=== PATIENT | female | born 1980 | race Caucasian/White ===

== ENCOUNTER 2025-07-17 19:49 | Emergency (ER) | payer OTHER, SELFPAY ==
[2025-07-17 19:51] VITALS: BP 154/90
[2025-07-17 20:04] LABS: Hematocrit 33.8 % (37.0-47.0); Hemoglobin 11.0 g/dL (12.0-16.0); Mean Corp Hgb Conc. 32.5 g/dL (33.0-37.0); Mean Corpuscular Volume 81.6 fL (81.0-99.0); Nucleated Red Blood Cells % 0 %; Platelet Count 366 10^3/uL (130-400); Red Cell Dist. Width 14.7 % (11.5-14.5)
[2025-07-17 20:27] LABS: ALT (SGPT) 19 U/L (0-35); AST (SGOT) 19 U/L (14-36); Albumin 4.1 g/dl (3.5-5.0); Alkaline Phosphatase 89 U/L (38-126); Blood Urea Nitrogen 10 mg/dl (7-17); Calcium 9.0 mg/dl (8.4-10.2); Carbon Dioxide 23 mmol/L (22-30); Chloride 105 mmol/L (98-107); Glucose 98 mg/dl (70-99); Potassium 4.1 mmol/L (3.5-5.1); Sodium 136 mmol/L (135-145); Total Protein 7.1 g/dl (6.3-8.2); eGFR > 60.00
[2025-07-17 20:57] VITALS: BMI 27.1
[2025-07-17 20:59] LABS: Beta HCG Quantitative 605.73 mIU/ml
--- NOTE | 2025-07-17 20:59 | ED.GENMED ---
History of Present Illness
General
Chief Complaint: Fever
Source: patient
Exam Limitations: none
Time Seen by Provider: 07/17/25 20:30
Nursing documentation reviewed up to this point in time: agreed with
History of Present Illness
History of Present Illness:
45-year-old female recently started Wegovy presenting to the emergency department today with concerns of leg achiness body aches and fever over the past 4 days. Also has noticed some lower abdominal and pelvic cramping over the past few days. Her
menstrual cycle somewhat late over the past week and did have a home positive test patient is , 2 C-sections.
Past History
Past History
ED Past Medical History: Negative Asthma, HTN, Hypercholesterolemia or NIDDM
ED Past Surgical History: Cholecystectomy
Social History
Tobacco: Non-smoker
Alcohol: Occasional
Personal:
Living: with family
Review of Systems
Review of Systems
Allergies reviewed?: Yes
All Other Systems: ROS reviewed and negative except as documented in HPI and ROS
Phy Exam
Physical Exam
Physical Exam:
GENERAL: Alert , in no apparent distress
EYE: pupils equal and reactive
NECK: Supple, no significant adenopathy.
ENT: o/p clr, mmm.
CARDIAC: Regular rate and rhythm .
LUNGS: Clear breath sounds bilaterally, no acute respiratory distress, no wheezes/rales/rhonchi
ABDOMEN: Slight distention to the lower abdomen with vague discomfort no point tenderness
NEUROLOGICAL: Alert and oriented, no focal neuro deficits
SKIN: Warm and dry, skin intact.
MUSCULOSKELETAL: No edema, well perfused.
PSYCH: Normal and appropriate interaction.
Course
Orders/Labs/Results
Orders:
Orders
07/17/25 19:58
Complete Blood Count/With Diff Urgent
Comprehensive Metabolic Panel Urgent
HCG, Beta Quantitative [Beta HCG Quantitative] Urgent
Is this a screen?: No
07/17/25 20:57
US 1st Trimester Urgent
Comment:
Reason For Exam: cramping 5 weeks by dates
07/17/25 21:08
COVID-19 Antigen Urgent
Source: Nasal Swab
07/17/25 23:08
Urinalysis Reflex To Culture Urgent
Date Specimen was Collected: 07/17/25
Time Specimen was Collected: 22:58
Abnormal Lab Results
07/17/25
19:58
RBC 4.14 L 10^6/uL
(4.20-5.40)
Hgb 11.0 L g/dL
(12.0-16.0)
Hct 33.8 L %
(37.0-47.0)
MCH 26.6 L pg
(27.0-31.0)
MCHC 32.5 L g/dL
(33.0-37.0)
RDW 14.7 H %
(11.5-14.5)
Abs Immat Gran (auto) 0.1 H 10^3/uL
(0-0.05)
Absolute Neuts (auto) 7.0 H 10^3/uL
(1.4-6.5)
Absolute Monos (auto) 0.7 H 10^3/uL
(0.1-0.6)
Lymphocytes % 17.2 L %
(20.5-51.1)
07/17/25 19:58
07/17/25 19:58
Vital Signs
Initial and Last Documented VS:
Initial Vital Signs
Temp Pulse Resp BP Pulse Ox
99.0 F 110 18 154/90 99
07/17/25 19:51 07/17/25 19:51 07/17/25 19:51 07/17/25 19:51 07/17/25 19:51
Last Documented Vital Signs
Temp Pulse Resp BP Pulse Ox
99.4 F 91 14 117/70 100
07/17/25 23:10 07/17/25 23:10 07/17/25 23:10 07/17/25 23:10 07/17/25 23:10
MDM/Problems Addressed
MDM/Problems Addressed:
45-year-old female presenting to the emergency department today with concerns of fever over the past few days vague lower abdominal pain and achiness going to her legs bilaterally. No neurologic symptoms to her legs. No overlying skin changes no
upper respiratory symptoms. Positive test at home. Plan for ultrasound for further assessment. Ultrasound without visualization of obvious . Case discussed with OB the recommends repeated hCG in 48 hours. She was given their
information for follow-up otherwise stable for outpatient management.
*Pulse Oximetry
SaO2: 99
Oxygen Mode of Delivery: Room air
Patient hypoxic: no (100)
*Critical Care Note
Total Time (30-74mins, 75-104mins- exclusive of procedures): Not Applicable
ED Attending Note
-
Portions of this chart may have been created with voice recognition software.� Occasional wrong word or��sound alike� substitutions may have occurred due to the inherent limitations of voice recognition software.
Discharge Plan
Departure
Patient Disposition: Home (Routine Discharge)
Date of Disposition: 07/18/25
Time of Disposition: 00:34
Patient with high blood pressure during this ER visit?: No
Condition: Good
Covid-19: Not Applicable
Discharge Problem:
of unknown anatomic location
Instructions: Ectopic - ED (DC)
Prescriptions:
No Action
bupropion HCl 300 mg Tablet Extended Release 24 Hr
300 mg PO DAILY
Wegovy 0.25 mg/0.5 mL Pen Injector
0.25 mg SC QWEEK
Referrals:
Jon Gomez MD [Family Provider, Family Practice]
Shannan Chester DO [Active, Gynecology] - Follow up in 2-3 days
Stand Alone Forms: Return to Work
Activity Restrictions/Additional Instructions:
You came to the emergency department today with concerns of multiple symptoms. Here you are found to have a of unknown location. Please follow-up closely with obstetrics. Please call tomorrow at the listed number to set up your repeated
hCG level and follow-up. Return for any worsening, new or concerning symptoms.
Interventions
Interventions:
*Risk Screen - Suicide Last Done: 07/17/25 19:54
*General Assessment Last Done: 07/17/25 19:54
*Neglect/Abuse Screening Last Done: 07/17/25 19:54
*ED COVID-19 Vaccine History Last Done: 07/17/25 19:54
*Nursing Disposition Last Done: 07/18/25 00:47
ED- Neurological Assessment Last Done: 07/17/25 20:57
ED-Skin Assessment Last Done: 07/17/25 20:57
Discharge Date and Time
Discharge Date/Time: 07/18/25 00:47
Print Language: TRINIDADIAN
--- NOTE | 2025-07-17 20:59 | EDRN ---
Pt developed aching legs on Friday. Friday she went to work and her legs were aching again so she took motrin. Pt has not been to work since because she started with a fever of 101 Friday night. Pt notes temp of 101-101.5 daily.
and Friday, pain in her legs was 'excruciating, I laid around like a limp fish.' Pt had negative flu and covid tests on Friday. Today, pt took a test because her period is late and the test was positive. Pt has two children. LMP June
4th. Pt denies cp, sob, cough, urinary symptoms, sore throat, runny/congested nose. Pt took a walk in the park today 'to try and feel normal.' Pt recently stopped taking contrave because it stopped working and started wegovy.
[2025-07-17 21:11] VITALS: BP 141/87
[2025-07-17 21:29] LABS: COVID-19 Antigen Negative (Negative)
[2025-07-17 23:10] VITALS: BP 117/70
[2025-07-17 23:23] LABS: Urine Character Clear (Clear)
== END 2025-07-18 00:47 | disposition home or self-care (01) ==
LOC: EMR 19:49
PROVIDERS: Physician Assistant; Student in an Organized Health Care Education/Training Program; EMERGENCY PHYSICIAN Emergency Medicine; FAMILY PHYSICIAN Family Medicine
DX: O99.891 Other specified diseases and conditions complicating pregnancy (principal); R50.9 Fever, unspecified; Z90.49 Acquired absence of other specified parts of digestive tract
CPT/HCPCS: 99284; 76801; 80053; 81003; 84702; 85025; 87811

== ENCOUNTER → 2025-07-19 17:05 | Outpatient (REF) | payer OTHER, SELFPAY ==
[2025-07-19 18:00] LABS: Beta HCG Quantitative 807.66 mIU/ml
== END ==
LOC: REG 17:05
PROVIDERS: ATTENDING PHYSICIAN Student in an Organized Health Care Education/Training Program; FAMILY PHYSICIAN Family Medicine
DX: O00.80 Other ectopic pregnancy without intrauterine pregnancy (principal)
CPT/HCPCS: 36415; 84702

== ENCOUNTER 2025-07-20 14:53 | Day surgery (SDC) | payer OTHER, SELFPAY ==
[2025-07-20] VITALS (14 sets, daily range): BP systolic 94–135; BP diastolic 58–90; BMI 27.6
--- NOTE | 2025-07-20 11:06 | ED.GENMED ---
History of Present Illness
General
Chief Complaint: Problems
Source: patient
Exam Limitations: none
Time Seen by Provider: 07/20/25 11:05
Nursing documentation reviewed up to this point in time: agreed with
History of Present Illness
History of Present Illness:
Patient is a 45-year-old female presents to the ER for evaluation. Patient was seen here in the ER 3 days ago on July 17, newly with positive home 's at that time. Her hCG was 605 on the and ultrasound was done which
did not demonstrate a intrauterine sac or extra uterine gestational sac. Patient had repeat hCG done yesterday however hCG only increased to 807.
Patient has no pain and no bleeding. She called [facility] here at [place] they recommended she come to the ER.
Past History
Past History
ED Past Medical History: Negative Asthma, HTN, Hypercholesterolemia or NIDDM
ED Past Surgical History: Cholecystectomy
Social History
Tobacco: Non-smoker
Alcohol: Occasional
Personal:
Living: with family
Phy Exam
General Physical Exam
General Presentation: no apparent distress
General age: appears stated age
General Skin: warm and dry
General Habitus: normal
General Mental: alert
General Hydration: appears well hydrated
Cardiovascular Exam
Cardiovascular Exam: regular rate/rhythm, no murmur and normal peripheral pulses
Pulmonary Exam
Pulmonary Exam: lungs clear and no respiratory distress
Gastrointestinal Exam
Gastrointestinal Exam: non tender and soft
Neurological Exam
Neurological Exam: alert and oriented x3
Musculoskeletal Exam
Musculoskeletal Exam: full ROM
Skin Exam
Skin Exam: normal color and warm/dry
Psychiatric Exam
Psychiatric Exam: normal mood/affect
Course
Orders/Labs/Results
Orders:
Orders
07/20/25 10:35
US 1st Trimester Urgent
Comment: ER
Reason For Exam: Sent for possible ectopic, abnormal HCG levels
07/20/25 11:12
IV Insert/Care/Rem.- Treatment PRN
07/20/25 12:39
Consult [facility] [[facility] CONSULT] Urgent
Consulting Provider: Sophie Alvarado
Was physician already notified: Yes
Reason for consult: eval for poss ectopic
07/20/25 12:44
0.9% Sodium Chloride 1000 ml [Nss] 1,000 ml IV BOLUS
07/20/25 12:58
Urinalysis Reflex To Culture Urgent
Date Specimen was Collected: 07/20/25
Time Specimen was Collected: 12:57
07/20/25 13:04
Type+Screen Urgent
Complete Blood Count/With Diff Urgent
Comprehensive Metabolic Panel Urgent
07/20/25 13:22
Lidocaine 2% Mpf [Xylocaine Mpf 2%] 100 mg .ROUTE .STK-MED ONE
Propofol [Diprivan] 20 ml .ROUTE .STK-MED
Rocuronium [place] [Rocuronium] 50 mg .ROUTE .STK-MED ONE
07/20/25 13:56
Dexamethasone Sod Phosphate [Decadron] 20 mg .ROUTE .STK-MED ONE
Midazolam HCl [Versed] 2 mg .ROUTE .STK-MED ONE
Ondansetron Injectable [Zofran] 4 mg .ROUTE .STK-MED ONE
07/20/25 13:57
Fentanyl Citrate/Pf [Sublimaze] 100 mcg .ROUTE .STK-MED ONE
07/20/25 14:03
Fentanyl Citrate/Pf [Sublimaze] 25 mcg IV [id number] PRN
HYDROmorphone [Dilaudid] 0.25 mg IV PACU-Q5MPRN PRN
HYDROmorphone [Dilaudid] 0.5 mg IV PACU-Q5MPRN PRN
Ondansetron Injectable [Zofran] 4 mg IV PACU-ONCEPRN PRN
Prochlorperazine [Compazine] 5 mg IV PACU-ONCEPRN PRN
Notify MD As Directed
Notify physician if: for SDS patients with known or suspected sleep obstructive sleep apnea, monitor in the
PACU.
Notify MD for any apneic/desaturation episodes
O2 Therapy [RESP] Urgent
Titrate/Wean O2 to maintain O2 sat greater than (%): 92
Special Instructions: -Provide supplemental oxygen to achieve O2 sat of 92% or greater.
-After 15 min, may wean O2 and discontinue if patient is able to maintain O2 sat of 92%
or greater during recovery period.
If patient is a discharge home, without oxygen therapy, notify anestheiologist if
unable to maintain O2 SAT of 92% or greater on room air for MD clearance.
07/20/25 14:08
Succinylcholine Chloride [Succinylcholine] 200 mg .ROUTE .STK-MED ONE
07/20/25 14:15
Normosol (Mult Electrolytes) [Normosol-R/Plasmalyte-A] 1,000 ml IV PER PROTOCOL
07/20/25 14:16
Bupivacaine Mpf 0.25% [Sensorcaine-Mpf 0.25% Vial] 30 ml .ROUTE .STK-MED ONE
07/20/25 15:26
Phenylephrine HCl/0.9% NaCl [Ken-Synephrine] 1,000 mcg .ROUTE .STK-MED ONE
07/20/25 15:29
Sugammadex Sodium [Bridion] 200 mg .ROUTE .STK-MED ONE
07/20/25 15:39
Acetaminophen 1000MG/100Ml [Ofirmev] 1,000 mg in 100 ml .ROUTE .STK-MED
07/20/25 15:41
Ketorolac [Toradol] 30 mg .ROUTE .STK-MED ONE
07/20/25 15:45
Sugammadex Sodium [Bridion] 200 mg .ROUTE .STK-MED ONE
07/20/25 16:50
HCG, Beta Quantitative [Beta HCG Quantitative] Urgent
Is this a screen?: No
07/20/25 16:58
Discharge Patient As Directed
07/20/25 17:00
Acetaminophen [Tylenol] 650 mg PO SDS-Q4HPRN PRN
Ibuprofen [Motrin] 600 mg PO SDS-Q6HPRN PRN
Methotrexate Sodium/Pf [Methotrexate] 46 mg Intramuscular Injection 0 ml IM ONCE@1700,1701
Ondansetron Injectable [Zofran] 4 mg IV SDS-ONCEPRN PRN
Oxycodone [Roxicodone] 5 mg PO SDS-Q4HPRN PRN
Abnormal Lab Results
07/20/25
13:04
RBC 4.17 L 10^6/uL
(4.20-5.40)
Hgb 11.2 L g/dL
(12.0-16.0)
Hct 34.0 L %
(37.0-47.0)
MCH 26.9 L pg
(27.0-31.0)
MCHC 32.9 L g/dL
(33.0-37.0)
Plt Count 421 H 10^3/uL
(130-400)
Lymphocytes % 20.0 L %
(20.5-51.1)
07/20/25 13:04
07/20/25 13:04
Vital Signs
Initial and Last Documented VS:
Initial Vital Signs
Temp Pulse Resp BP Pulse Ox
98.2 F 89 16 135/89 100
07/20/25 10:31 07/20/25 10:31 07/20/25 10:31 07/20/25 10:31 07/20/25 10:31
Last Documented Vital Signs
Temp Pulse Resp BP Pulse Ox
97.6 F 79 16 124/74 96
07/20/25 17:25 07/20/25 18:15 07/20/25 18:15 07/20/25 18:15 07/20/25 18:15
Bone Worker consulted with Physician
Bone Worker consulted with physician?: Yes
Name of Physician Consulted: Bob
Information
Weeks gestation: N/A
Location: N/A
MDM/Problems Addressed
Differential Diagnosis Includes:
Not limited to ectopic , miscarriage failed IUP
MDM/Problems Addressed:
As documented patient was sent to the ER for inappropriate hCG levels. She was here 2 days ago newly found and as documented hCG was 65 and yesterday increased to 807. Ultrasound today shows significant free fluid with no definitive
intrauterine there is a large complex mass in the uterus. Patient does report however that she has a history of fibroids. Case reviewed with [facility] on-call Dr. Alvarado patient will need to go to the OR. Basic labs and type and screen
ordered. She remained stable with stable vital signs and no acute distress continues to be pain-free and no bleeding.
1310 OB, Dr. Alvarado evaluated patient at bedside plan for OR likely ectopic
*Radiology
Radiology exam reviewed: radiology read reviewed
*Pulse Oximetry
SaO2: 100
Oxygen Mode of Delivery: Room air
Patient hypoxic: no
*Critical Care Note
Total Time (30-74mins, 75-104mins- exclusive of procedures): Not Applicable
ED Attending Note
-
Portions of this chart may have been created with voice recognition software.� Occasional wrong word or��sound alike� substitutions may have occurred due to the inherent limitations of voice recognition software.
Discharge Plan
Departure
Patient Disposition: OR
Date of Disposition: 07/20/25
Time of Disposition: 13:14
Admit to: OR
Admit to doctor: Christiano
Presentation/result/management discussed w/ accepting MD/DO: Christiano
Patient with high blood pressure during this ER visit?: Yes
Condition: Fair
Covid-19: Not Applicable
Discharge Problem:
Ectopic
Interventions
Interventions:
*Risk Screen - Suicide Last Done: 07/20/25 12:03
*General Assessment Last Done: 07/20/25 12:03
*Neglect/Abuse Screening Last Done: 07/20/25 12:03
*ED- Fall Risk Assessment Last Done: 07/20/25 12:03
*ED COVID-19 Vaccine History Last Done: 07/20/25 12:03
*Nursing Disposition Last Done: 07/20/25 14:42
ED-Female Genitourinary Assessment Last Done: 07/20/25 12:03
Discharge Date and Time
Discharge Date/Time: 07/20/25 14:43
--- NOTE | 2025-07-20 13:11 | HPS.HSE ---
Family Physician
-
Family Physician: Jon Gomez
Chief Complaint
-
Possible ectopic; known + test
History of Present Illness
Maria Fernanda is a 45 yo F presenting for abnormally rising hCG. She states that she has no pain, vaginal bleeding or concerns. She had a + test at home. She was seen in the ED on 07/17 and found to have a quant hCG of 605. Her repeat quant was
performed on 07/19 with value of 807. This was not a desired . She has two children both delivered via section. She last ate at 0900 (apple pie).
Medical History
Past Medical History
Past Medical History: Reports None
Past Surgical History: Reports Cholecystectomy and (x2)
Social History
Tobacco: Non-smoker
Alcohol: None
Drug: None
Employment: Employed
Family History
Family History: Not pertinent
Allergies / Home Medications
Allergies reflects when Allergies were last updated in [facility].
Home Medications with original date entered in [facility]
Allergy/Medication List:
NKDA
Review of Systems
-
History Source: Patient
A 12 point ROS was completed and negative except as noted: Yes
Constitutional: Reports No Symptoms
Respiratory: Reports No Symptoms
Cardiac: Reports No Symptoms
Abdomen/GI: Reports No Symptoms (no N/V or abd pain)
: Reports No Symptoms (denies vaginal bleeding)
Physical Exam
Vital Signs
Vital Signs
Temp Pulse Resp BP Pulse Ox
98.2 F 89 16 125/66 100
07/20/25 10:31 07/20/25 10:31 07/20/25 10:31 07/20/25 12:02 07/20/25 12:02
Physical Exam
General: No Apparent Distress and Comfortable
HEENT: Atraumatic
Respiratory: Clear
Cardiac: S1/S2 and Regular Rhythm
Breast: Deferred by me
GI: Soft, Non Tender, Distended (moderate abdominal distension) and Other ( scar)
Genito-urinary: Deferred by me (denies vaginal bleeding)
Skin: Warm and Dry
Neuro: AO x 3
Laboratory Results
-
Beta hCG of 605 (07/17) -> 807 (07/19)
Data Reviewed
-
Ultrasound: Report Reviewed by me, Discussed with Patient and Discussed with Family
Impression/Plan
-
IMPRESSION:
Maria Fernanda is a 45 yo F presenting with abnormally rising hCG concerning for an ectopic
PLAN:
Plan to proceed to OR for EUA, diagnostic laparoscopy, unilateral salpingectomy, and all other indicated procedures.
Pending CBC, CMP, and T&S.
Patient consents to blood transfusion and CPR if needed
Discussed risk of bleeding, infection, and injury to nearby structures. Discussed procedure and recovery.
discussed w/OR staff and anesthesia.
[2025-07-20] MEDS: NSS 1000 IV (13:12)
[2025-07-20 13:25] LABS: Hematocrit 34.0 % (37.0-47.0); Hemoglobin 11.2 g/dL (12.0-16.0); Mean Corp Hgb Conc. 32.9 g/dL (33.0-37.0); Mean Corpuscular Volume 81.5 fL (81.0-99.0); Nucleated Red Blood Cells % 0 %; Platelet Count 421 10^3/uL (130-400); Red Cell Dist. Width 14.4 % (11.5-14.5)
[2025-07-20 13:31] LABS: Urine Character Clear (Clear)
[2025-07-20 13:38] LABS: ALT (SGPT) 16 U/L (0-35); AST (SGOT) 17 U/L (14-36); Albumin 4.1 g/dl (3.5-5.0); Alkaline Phosphatase 95 U/L (38-126); Blood Urea Nitrogen 7 mg/dl (7-17); Calcium 9.0 mg/dl (8.4-10.2); Carbon Dioxide 25 mmol/L (22-30); Chloride 105 mmol/L (98-107); Estimated Creatinine Clearance 123 ml/min; Glucose 99 mg/dl (70-99); Potassium 4.3 mmol/L (3.5-5.1); Sodium 137 mmol/L (135-145); Total Protein 7.2 g/dl (6.3-8.2); eGFR > 60.00
--- NOTE | 2025-07-20 16:15 | OR.RPT ---
Addendum entered and electronically signed by Sophie Alvarado MD 07/21/25 21:27:
Date of Surgery: 07/20/2025
Original Note:
Operative Report
Operative Report
Operative report
Patient name: Maria Fernanda Cade
: 1980

Procedure: Exam under anesthesia and diagnostic laparoscopy
Surgeon: Sophie Alvarado MD
Boxer Operator: NARCISA De León
Preoperative diagnosis: Suspected ectopic
Postoperative diagnosis: of unknown location, fibroid uterus, adhesive disease
EBL: 5cc
Anesthesia: General anesthesia w/ETT
UOP: 100cc
Operative findings:
1. External genitalia grossly normal in appearance. Bimanual exam revealed 12-week enlarged uterus, mobile and smooth contour. No adnexal masses palpated bilaterally.
2. Vagina was grossly normal in appearance without any lacerations or lesions.
3. Normal-appearing liver, surgically absent gallbladder, normal-appearing bowels
4. Small omental adhesion at the level of the umbilicus to the anterior abdominal wall
5. No evidence of hemoperitoneum
6. Large 10 cm intramural fibroid uterus. Significant bladder adhesion to anterior surface of uterus.
7. Normal-appearing fallopian tubes and ovaries bilaterally. NO evidence of visible ectopic .
Description of procedure
Patient was taken to the operating room with concern for ectopic given inappropriate rise in beta-hCG from 605 to 807 over 2 days and concern for free fluid in the pelvis. General anesthesia with ET tube was administered and the patient
was positioned on the OR table in dorsal lithotomy position. All pressure points were padded and a Angelic hugger was placed to maintain control of core body temperature. Bimanual exam was performed and the uterus was noted to be enlarged 12-week in
size and anteverted. There was no palpable adnexal masses or fullness. The patient was prepped and draped in the usual sterile fashion with ChloraPrep on the abdomen and Betadine prep on the vagina and perineum.
Operative technique
A timeout was performed to confirm correct patient and correct procedure. A Méndez catheter was introduced into the bladder which drained 100 cc of clear yellow urine throughout the entire case. A sponge stick was placed in the vagina. Sterile
gloves were then exchanged and attention was turned to the abdomen.
A 5 mm incision was made at the superior edge of the umbilicus for introduction of a 5 mm trocar. Trocar was introduced under direct visualization. Pneumoperitoneum was then established to a maximum of 15 mmHg. The entire abdomen and pelvis was
inspected and there was no evidence of injury to bowel, bladder, vasculature, or other structures. Attention was then turned to the pelvis.
Patient was then placed in Trendelenburg. One additional port site was selected in the right lower abdomen approximately 2 cm superior and medial to the iliac crest. A 5 mm incision was made for introduction of a 5 mm trocar under direct
visualization at each site. A pelvic survey was completed and findings are as noted above.
Pneumoperitoneum was allowed to escape. The inferior trocars were removed under direct visualization. The laparoscope was withdrawn from the abdomen, followed by a trocar sleeves at the umbilicus. Skin incisions were closed with 4-0 Monocryl and
skin glue.
Attention was then turned to the vagina where the sponge stick was removed atraumatically. Méndez catheter was also removed at this time.
At the conclusion of the procedure, all needle, sponge, and instrument counts were noted to be correct x 2. Patient tolerated the procedure well and was transferred to PACU in stable condition prior to discharge with follow-up in 1 to 2 weeks.
Discussed with patient and her family the operative findings. Explained my recommendation for methotrexate given no obvious ectopic seen on diagnostic laparoscopy. Patient and family in agreement with plan for methotrexate and follow-up
quantitative beta-hCG. Plan to obtain hCG prior to administration of methotrexate.
Dr. Alvarado was present and participated in all zaidi portions of the case.
[2025-07-20 17:38] LABS: Beta HCG Quantitative 787.49 mIU/ml
[2025-07-20] MEDS: METHOTREXATE 1.84 MG IM ×2 (17:55→18:00)
== END 2025-07-20 18:22 | disposition home or self-care (01) ==
LOC: PACU 14:53
PROVIDERS: Nurse Practitioner; ATTENDING PHYSICIAN Obstetrics & Gynecology; EMERGENCY PHYSICIAN Emergency Medicine; FAMILY PHYSICIAN Family Medicine
DX: D25.9 Leiomyoma of uterus, unspecified (principal); N85.2 Hypertrophy of uterus
CPT/HCPCS: 58555; 76801; 80053; 81003; 84702; 85025; 86850; 86900; 86901; 96360; 99284; C1776; J9260

== ENCOUNTER → 2025-07-23 11:11 | Outpatient (REF) | payer OTHER, SELFPAY ==
[2025-07-23 13:05] LABS: Beta HCG Quantitative 459.62 mIU/ml
== END ==
LOC: REG 11:11
PROVIDERS: ATTENDING PHYSICIAN Obstetrics & Gynecology; FAMILY PHYSICIAN Family Medicine
DX: O00.00 Abdominal pregnancy without intrauterine pregnancy (principal)
CPT/HCPCS: 36415; 84702

== ENCOUNTER → 2025-07-26 13:47 | Outpatient (REF) | payer OTHER, SELFPAY ==
[2025-07-26 14:50] LABS: Beta HCG Quantitative 83.25 mIU/ml
== END ==
LOC: REG 13:47
PROVIDERS: ATTENDING PHYSICIAN Obstetrics & Gynecology; FAMILY PHYSICIAN Family Medicine
DX: O00.00 Abdominal pregnancy without intrauterine pregnancy (principal)
CPT/HCPCS: 36415; 84702

== ENCOUNTER → 2025-08-02 14:43 | Outpatient (REF) | payer OTHER, SELFPAY ==
[2025-08-02 16:39] LABS: Beta HCG Quantitative 4.87 mIU/ml
== END ==
LOC: REG 14:43
PROVIDERS: ATTENDING PHYSICIAN Obstetrics & Gynecology; FAMILY PHYSICIAN Family Medicine
DX: O00.90 Unspecified ectopic pregnancy without intrauterine pregnancy (principal)
CPT/HCPCS: 36415; 84702

== ENCOUNTER → 2025-08-09 11:09 | Outpatient (REF) | payer OTHER, SELFPAY ==
[2025-08-09 13:45] LABS: Beta HCG Quantitative < 2.39 mIU/ml
== END ==
LOC: REG 11:09
PROVIDERS: ATTENDING PHYSICIAN Obstetrics & Gynecology; FAMILY PHYSICIAN Family Medicine
DX: O00.90 Unspecified ectopic pregnancy without intrauterine pregnancy (principal)
CPT/HCPCS: 36415; 84702